=== PATIENT | female | born 1960 | race African-American/Black ===

== ENCOUNTER 2016-07-22 08:19 | Inpatient (IN) | payer MEDICARE, MEDICAID ==
[~2016-07-22] VITALS: Ht 170.2 cm; Wt 101.6 kg
[~2016-07-22 08:19] MED LIST: GEODON; OMEP20CA4 PO
[2016-07-22] MEDS ORDERED: MORPHINE SULFATE 4 MG/ML CPJ (NOT FOR IM USE) IV STA (09:45)
[2016-07-22] MEDS ORDERED: ONDANSETRON HCL 4MG/2ML VIAL IV STA (09:45)
[2016-07-22 11:10] LABS: BASOPHILS % 0.5 % (0.0-2.0); EOSINOPHILS % 0.7 % (0.0-5.0); HEMATOCRIT. 39.1 % (36.0-48.0); HEMOGLOBIN. 12.8 g/dL (12.0-16.0); MEAN CORPUSCULAR HEMOGLOBIN 29.4 pg (28.0-32.0); MEAN CORPUSCULAR HGB CONC 32.8 g/dL (31.0-37.0); MEAN CORPUSCULAR VOLUME 89.7 fL (81.0-99.0); MEAN PLATELET VOLUME 6.9 fl (7.4-10.4); MONOCYTES % 7.8 % (2.0-8.0); PLATELET 239 x1000/uL (130-400); RED BLOOD CELL COUNT 4.37 mill/uL (4.2-5.4); RED CELL DISTRIBUTION WIDTH 13.4 % (11.6-14.6); WHITE BLOOD COUNT 7.8 x1000/uL (4.5-11.0)
[2016-07-22 11:15] LABS: PARTIAL THROMBOPLASTIN TIME 26.2 sec (24.0-34.0); PROTHROMBIN TIME 10.7 sec
[2016-07-22 11:18] LABS: ALBUMIN 3.8 g/dL (3.4-5.0); ANION GAP 15; CALCIUM 8.9 mg/dL (8.5-10.1); CARBON DIOXIDE 29 mEq/L (21-32); CHLORIDE 101 mEq/L (98-107); INDEX HEMOLYSI 1 (1-3); INDEX ICTERIC 1 (1-4); INDEX LIPEMIC 1 (1-3); LIPASE 111 IU/L (73-393); UREA NITROGEN BLOOD 8 mg/dL (7-21)
[2016-07-22 11:23] LABS: TROPONIN I < 0.02 ng/mL (0.00-0.04); eGFR > 60 mL/min (>60)
[2016-07-22 11:29] LABS: ALANINE AMINOTRANSFERASE 26 IU/L (13-61)
[2016-07-22] MEDS ORDERED: GUAIFENESIN 200MG/10ML SUGAR FREE UDC PO PRN (12:30)
[2016-07-22] MEDS ORDERED: CLONIDINE 0.1MG TABLET PO PRN (12:30)
[2016-07-22] MEDS ORDERED: MAGNESIUM/ALUMINUM HYDROXIDE/SIMETHICONE 30ML UDC PO PRN (12:30)
[2016-07-22] MEDS ORDERED: LORAZEPAM 2MG/ML CPJ IV PRN (12:30)
[2016-07-22] MEDS ORDERED: ONDANSETRON HCL 4MG/2ML VIAL IV PRN (12:30)
[2016-07-22] MEDS ORDERED: IPRATROPIUM/ALBUTEROL 0.5-3(2.5)MG/3ML NEB INH PRN (12:30)
[2016-07-22] MEDS ORDERED: DOCUSATE SODIUM 100MG CAPSULE PO PRN (12:30)
[2016-07-22] MEDS ORDERED: ACETAMINOPHEN 325MG TABLET PO PRN (12:30)
[2016-07-22] MEDS ORDERED: NA PHOS,M-B/NA PHOS,DI-BA ENEMA 118ML PR PRN (12:30)
[2016-07-22 15:07] VITALS: BP 150/91
[2016-07-22] MEDS: HYDROCODONE/ACETAMINOPHEN 5/325MG TABLET PO PRN ×2 (15:28→19:48)
[2016-07-22 16:00] VITALS: BP 145/84
[2016-07-22 16:49] LABS: ANION GAP 11; CALCIUM 9.1 mg/dL (8.5-10.1); CARBON DIOXIDE 29 mEq/L (21-32); CHLORIDE 101 mEq/L (98-107); INDEX HEMOLYSI 1 (1-3); INDEX ICTERIC 1 (1-4); INDEX LIPEMIC 1 (1-3); UREA NITROGEN BLOOD 10 mg/dL (7-21); eGFR > 60 mL/min (>60)
[2016-07-22 16:52] LABS: TROPONIN I < 0.02 ng/mL (0.00-0.04)
[2016-07-22] MEDS: HYDROMORPHONE HCL/PF 2MG/ML CPJ IV PRN ×2 (17:33→22:29)
[2016-07-22] MEDS: ENOXAPARIN 30MG/0.3ML SYR SUBCUT SCH (17:34)
[2016-07-22] MEDS ORDERED: LISI-604 PO (19:08)
[2016-07-22] MEDS ORDERED: SITA1TAB4 PO (19:08)
[2016-07-22] MEDS ORDERED: AMLO10TA80 PO (19:08)
[2016-07-22] MEDS ORDERED: [UNRECOGNIZED DRUG - OTHER] PO (19:08)
[2016-07-22] MEDS ORDERED: OMEP40CA34 PO (19:08)
[2016-07-22] MEDS ORDERED: ACET-3161 PO (19:08)
[2016-07-22] MEDS ORDERED: ATOR20TA65 PO (19:08)
[2016-07-22] MEDS ORDERED: TRAZ-132 PO (19:08)
[2016-07-22] MEDS ORDERED: DEXTROSE 50% WATER 50ML SYRINGE IV PRN (19:30)
[2016-07-22 20:00] VITALS: BP 135/73
[2016-07-22] MEDS: BLOOD SUGAR DIAGNOSTIC STRIP TEST SCH (20:34)
[2016-07-22] MEDS: INSULIN LISPRO 100 UNITS/ML SUBCUT SCH (20:37)
[2016-07-23] VITALS: BP 145/92
[2016-07-23] MEDS: DIPHENHYDRAMINE 50MG/ML VIAL IV PRN (01:51)
[2016-07-23 04:00] VITALS: BP 151/83
[2016-07-23] MEDS: HYDROMORPHONE HCL/PF 2MG/ML CPJ IV PRN ×2 (05:57→09:22)
[2016-07-23] MEDS: ENOXAPARIN 30MG/0.3ML SYR SUBCUT SCH ×2 (05:57→17:48)
[2016-07-23 05:58] LABS: BASOPHILS % 0.4 % (0.0-2.0); EOSINOPHILS % 0.7 % (0.0-5.0); HEMATOCRIT. 38.2 % (36.0-48.0); HEMOGLOBIN. 12.4 g/dL (12.0-16.0); LYMPHOCYTES % 54.4 % (20.0-50.0); MEAN CORPUSCULAR HEMOGLOBIN 29.2 pg (28.0-32.0); MEAN CORPUSCULAR HGB CONC 32.4 g/dL (31.0-37.0); MEAN CORPUSCULAR VOLUME 90.2 fL (81.0-99.0); MEAN PLATELET VOLUME 6.9 fl (7.4-10.4); MONOCYTES % 9.2 % (2.0-8.0); NEUTROPHILS % 35.3 % (40.0-76.0); PLATELET 229 x1000/uL (130-400); RED BLOOD CELL COUNT 4.23 mill/uL (4.2-5.4); RED CELL DISTRIBUTION WIDTH 13.2 % (11.6-14.6); WHITE BLOOD COUNT 7.3 x1000/uL (4.5-11.0)
[2016-07-23] MEDS ORDERED: REPA0.5T3 PO (06:10)
[2016-07-23 06:26] LABS: ALANINE AMINOTRANSFERASE 23 IU/L (13-61); ALBUMIN 3.5 g/dL (3.4-5.0); ANION GAP 12; CALCIUM 8.9 mg/dL (8.5-10.1); CARBON DIOXIDE 30 mEq/L (21-32); CHLORIDE 102 mEq/L (98-107); INDEX HEMOLYSI 1 (1-3); INDEX ICTERIC 1 (1-4); INDEX LIPEMIC 1 (1-3); UREA NITROGEN BLOOD 7 mg/dL (7-21)
[2016-07-23 06:37] LABS: T4 FREE 1.04 ng/dL (0.76-1.46); eGFR > 60 mL/min (>60)
[2016-07-23] MEDS: BLOOD SUGAR DIAGNOSTIC STRIP TEST SCH ×4 (07:46→21:00)
[2016-07-23] MEDS: INSULIN LISPRO 100 UNITS/ML SUBCUT SCH ×4 (07:46→21:00)
[2016-07-23 08:00] VITALS: BP 151/93
[2016-07-23] MEDS ORDERED: SITAGLIPTIN PHOS PO SCH (09:00)
[2016-07-23] MEDS ORDERED: METFORMIN HCL PO SCH (09:00)
[2016-07-23] MEDS ORDERED: [UNRECOGNIZED DRUG - OTHER] PO SCH (09:00)
[2016-07-23] MEDS: METFORMIN HCL 500MG TABLET PO SCH ×2 (09:15→17:45)
[2016-07-23] MEDS: OMEPRAZOLE 20MG CAPSULE EXTENDED RELEASE PO SCH (09:15)
[2016-07-23] MEDS: ASPIRIN 81MG EC TABLET PO SCH (09:15)
[2016-07-23] MEDS: AMLODIPINE 10MG TABLET PO SCH (09:16)
[2016-07-23] MEDS: LINAGLIPTIN 5MG TABLET PO SCH (09:21)
[2016-07-23] MEDS: LISINOPRIL 20MG TABLET PO SCH (09:21)
[2016-07-23 12:00] VITALS: BP 153/75
[2016-07-23] MEDS: HYDROCODONE/ACETAMINOPHEN 5/325MG TABLET PO PRN ×3 (14:15→21:44)
[2016-07-23 16:00] VITALS: BP 143/75
[2016-07-23] MEDS ORDERED: REPAGLINIDE 0.5MG TABLET PO SCH (17:40)
[2016-07-23 20:00] VITALS: BP 148/84
[2016-07-23] MEDS ORDERED: ATORVASTATIN CALCIUM 40MG TABLET PO SCH (21:00)
[2016-07-23] MEDS ORDERED: TRAZODONE HCL 100MG TABLET PO SCH (21:00)
[2016-07-24] VITALS: BP 137/67
[2016-07-24] MEDS: DIPHENHYDRAMINE 50MG/ML VIAL IV PRN (00:13)
[2016-07-24 04:00] VITALS: BP 135/77
[2016-07-24] MEDS: ENOXAPARIN 30MG/0.3ML SYR SUBCUT SCH (06:08)
[2016-07-24 08:00] VITALS: BP 121/75
[2016-07-24] MEDS: OMEPRAZOLE 20MG CAPSULE EXTENDED RELEASE PO SCH (08:16)
[2016-07-24] MEDS: AMLODIPINE 10MG TABLET PO SCH (08:17)
[2016-07-24] MEDS: ASPIRIN 81MG EC TABLET PO SCH (08:17)
[2016-07-24] MEDS: LINAGLIPTIN 5MG TABLET PO SCH (08:17)
[2016-07-24] MEDS: METFORMIN HCL 500MG TABLET PO SCH (08:17)
[2016-07-24] MEDS: HYDROCODONE/ACETAMINOPHEN 5/325MG TABLET PO PRN (08:17)
[2016-07-24] MEDS: LISINOPRIL 20MG TABLET PO SCH (08:18)
[2016-07-24] MEDS: INSULIN LISPRO 100 UNITS/ML SUBCUT SCH (08:19)
[2016-07-24] MEDS: BLOOD SUGAR DIAGNOSTIC STRIP TEST SCH (08:30)
[2016-07-24 10:45] VITALS: BP 121/75
== END 2016-07-24 11:24 | disposition home or self-care (01) | DRG 206 ==
LOC: ER 08:41 → 7WST 12:10
PROVIDERS: ADMIT Internal Medicine; ATTEND Internal Medicine
DX: M94.0 Chondrocostal junction syndrome [Tietze] (principal); E46 Unspecified protein-calorie malnutrition; E11.42 Type 2 diabetes mellitus with diabetic polyneuropathy; I11.9 Hypertensive heart disease without heart failure; E87.8 Other disorders of electrolyte and fluid balance, not elsewhere classified; E78.5 Hyperlipidemia, unspecified; F17.200 Nicotine dependence, unspecified, uncomplicated; I65.29 Occlusion and stenosis of unspecified carotid artery; K21.9 Gastro-esophageal reflux disease without esophagitis; K59.00 Constipation, unspecified; M47.9 Spondylosis, unspecified; Z68.35 Body mass index [BMI] 35.0-35.9, adult
CPT/HCPCS: 36415; 70450; 71010; 72125; 80048; 80053; 82962; 83690; 84439; 84443; 84484; 85025; 85610; 85730; 93005; 96374; 96375; 99285; J1170; J1200; J1650; J1815; J2270; J2405

== ENCOUNTER 2016-09-07 16:10 | Emergency (ER) | payer MEDICARE, MEDICAID ==
[~2016-09-07] VITALS: Ht 167.6 cm; Wt 100.0 kg
[~2016-09-07 16:10] MED LIST changes: +ACET-3161 PO; +AMLO10TA80 PO; +ATOR20TA65 PO; +LISI-604 PO; +REPA0.5T3 PO; +SITA1TAB4 PO; +TRAZ-132 PO
[2016-09-07] MEDS ORDERED: KETOROLAC 30MG/ML VIAL IV STA (17:45)
[2016-09-07] MEDS ORDERED: SODIUM CHLORIDE 0.9% 1,000 ML IV ONE (17:45)
[2016-09-07] MEDS ORDERED: ONDANSETRON HCL 4MG/2ML VIAL IV STA (17:45)
[2016-09-07 18:16] LABS: CHLORIDE 103 mEq/L (98-107)
[2016-09-07 18:19] LABS: CARBON DIOXIDE 27 mEq/L (21-32)
[2016-09-07 18:44] LABS: BASOPHILS % 0.4 % (0.0-2.0); EOSINOPHILS % 0.5 % (0.0-5.0); HEMOGLOBIN. 14.2 g/dL (12.0-16.0); LYMPHOCYTES % 49.1 % (20.0-50.0); MEAN CORPUSCULAR HEMOGLOBIN 29.6 pg (28.0-32.0); MEAN CORPUSCULAR VOLUME 89.7 fL (81.0-99.0); MEAN PLATELET VOLUME 6.8 fl (7.4-10.4); MONOCYTES % 7.5 % (2.0-8.0); NEUTROPHILS % 42.5 % (40.0-76.0); PLATELET 229 x1000/uL (130-400); RED BLOOD CELL COUNT 4.79 mill/uL (4.2-5.4); RED CELL DISTRIBUTION WIDTH 13.6 % (11.6-14.6)
[2016-09-07 19:07] LABS: CLARITY URINE CLEAR (CLEAR); COLOR URINE YELLOW (YELLOW); GLUCOSE URINE NEGATIVE (NEGATIVE); KETONES URINE NEGATIVE (NEGATIVE); LEUKOCYTE ESTERASE URINE NEGATIVE (NEGATIVE); NITRITE URINE NEGATIVE (NEGATIVE); OCCULT BLOOD URINE TRACE (NEGATIVE); PROTEIN URINE NEGATIVE (NEGATIVE); SPECIFIC GRAVITY URINE 1.009 (1.005-1.030); UROBILINOGEN URINE 0.2 E.U./dL (0.2-1.0)
[2016-09-07] MEDS ORDERED: HYDRALAZINE 20MG/ML VIAL IV ONE (20:45)
[2016-09-07] MEDS ORDERED: MORPHINE SULFATE 4 MG/ML CPJ (NOT FOR IM USE) IV ONE (20:45)
[2016-09-07 22:02] VITALS: BP 148/66
== END 2016-09-07 22:06 | disposition home or self-care (01) ==
LOC: ER 18:10
DX: M54.9 Dorsalgia, unspecified (principal); R10.12 Left upper quadrant pain; R11.2 Nausea with vomiting, unspecified; R35.0 Frequency of micturition; F17.200 Nicotine dependence, unspecified, uncomplicated; I10 Essential (primary) hypertension; E11.9 Type 2 diabetes mellitus without complications; Z90.49 Acquired absence of other specified parts of digestive tract; Z88.8 Allergy status to other drugs, medicaments and biological substances
CPT/HCPCS: 36415; 71010; 74176; 80053; 81001; 83690; 85025; 93005; 96361; 96374; 96375; 99285; J0360; J1885; J2270; J2405; J7030

== ENCOUNTER 2017-05-21 18:34 | Emergency (ER) | payer MEDICARE, MEDICAID ==
[~2017-05-21] VITALS: Ht 162.6 cm; Wt 70.0 kg
[2017-05-22] MEDS ORDERED: HYDROCODONE/APAP 7.5/325MG 1 TAB TABLET PO ONE (00:15)
[2017-05-22 01:43] VITALS: BP 143/81
== END 2017-05-22 01:47 | disposition home or self-care (01) ==
LOC: ER 18:54
DX: S20.20XA Contusion of thorax, unspecified, initial encounter (principal); E11.9 Type 2 diabetes mellitus without complications; I10 Essential (primary) hypertension; Z88.8 Allergy status to other drugs, medicaments and biological substances; Z90.49 Acquired absence of other specified parts of digestive tract; W01.0XXA Fall on same level from slipping, tripping and stumbling without subsequent striking against object, initial encounter; Y93.89 Activity, other specified; Y92.811 Bus as the place of occurrence of the external cause
CPT/HCPCS: 71101; 99284

== ENCOUNTER 2018-03-12 00:36 | Emergency (ER) | payer MEDICARE, MEDICAID ==
[~2018-03-12] VITALS: Ht 167.6 cm; Wt 95.0 kg
[~2018-03-12 00:36] MED LIST changes: -TRAZ-132 PO; +TRAZ-213 PO
[2018-03-12 01:27] LABS: BASOPHILS % 0.4 % (0.0-2.0); EOSINOPHILS % 0.8 % (0.0-5.0); HEMATOCRIT. 40.5 % (36.0-48.0); HEMOGLOBIN. 13.2 g/dL (12.0-16.0); LYMPHOCYTES % 28.3 % (20.0-50.0); MEAN CORPUSCULAR HEMOGLOBIN 29.9 pg (28.0-32.0); MEAN CORPUSCULAR VOLUME 91.5 fL (81.0-99.0); MONOCYTES % 6.8 % (2.0-8.0); NEUTROPHILS % 63.7 % (40.0-76.0); PLATELET 279 x1000/uL (130-400); RED BLOOD CELL COUNT 4.42 mill/uL (4.2-5.4); RED CELL DISTRIBUTION WIDTH 13.1 % (11.6-14.6)
[2018-03-12 01:33] LABS: CHLORIDE 96 mEq/L (98-107)
[2018-03-12 01:36] LABS: PROTHROMBIN TIME 10.5 sec (9.1-11.1)
[2018-03-12 02:50] LABS: CLARITY URINE CLEAR (CLEAR); COLOR URINE YELLOW (YELLOW); KETONES URINE NEGATIVE (NEGATIVE); LEUKOCYTE ESTERASE URINE NEGATIVE (NEGATIVE); NITRITE URINE NEGATIVE (NEGATIVE); OCCULT BLOOD URINE TRACE (NEGATIVE); PH URINE 6.5 (4.5-8.0); PROTEIN URINE NEGATIVE (NEGATIVE); SPECIFIC GRAVITY URINE 1.006 (1.005-1.030); UROBILINOGEN URINE 0.2 E.U./dL (0.2-1.0)
[2018-03-12 03:51] VITALS: BP 169/88
== END 2018-03-12 03:52 | disposition home or self-care (01) ==
LOC: ER 00:36
DX: R55 Syncope and collapse (principal); F41.9 Anxiety disorder, unspecified; E11.9 Type 2 diabetes mellitus without complications; E78.00 Pure hypercholesterolemia, unspecified; F17.200 Nicotine dependence, unspecified, uncomplicated; Z79.899 Other long term (current) drug therapy; Z88.9 Allergy status to unspecified drugs, medicaments and biological substances
CPT/HCPCS: 36415; 71045; 82962; 83605; 83880; 84484; 93005; 99284; 99406

== ENCOUNTER 2018-03-24 03:12 | Emergency (ER) | payer MEDICARE, MEDICAID ==
[~2018-03-24] VITALS: Ht 172.7 cm; Wt 95.4 kg
[2018-03-24] MEDS ORDERED: KETOROLAC 60MG/2ML VIAL IM STA (09:46)
[2018-03-24] MEDS ORDERED: CYCLOBENZAPRINE 10MG TABLET PO ONE (10:00)
[2018-03-24 13:15] VITALS: BP 130/66
== END 2018-03-24 13:23 | disposition home or self-care (01) ==
LOC: ER 03:12
DX: M26.609 Unspecified temporomandibular joint disorder, unspecified side (principal); J02.9 Acute pharyngitis, unspecified; Z88.8 Allergy status to other drugs, medicaments and biological substances; Z90.710 Acquired absence of both cervix and uterus
CPT/HCPCS: 87070; 87430; 96372; 99283; J1885

== ENCOUNTER 2018-11-22 08:18 | Emergency (ER) | payer BC, MEDICAID ==
[~2018-11-22] VITALS: Ht 165.1 cm; Wt 95.0 kg
[2018-11-22] MEDS ORDERED: SODIUM CHLORIDE 0.9% 1,000 ML IV ONE (09:54)
[2018-11-22 10:07] LABS: BASOPHILS % 0.3 % (0.0-2.0); EOSINOPHILS % 1.1 % (0.0-5.0); HEMATOCRIT. 36.9 % (36.0-48.0); HEMOGLOBIN. 12.3 g/dL (12.0-16.0); LYMPHOCYTES % 40.3 % (20.0-50.0); MEAN CORPUSCULAR HEMOGLOBIN 29.9 pg (28.0-32.0); MEAN CORPUSCULAR VOLUME 89.6 fL (81.0-99.0); MEAN PLATELET VOLUME 6.9 fl (7.4-10.4); NEUTROPHILS % 51.3 % (40.0-76.0); PLATELET 230 x1000/uL (130-400); RED BLOOD CELL COUNT 4.12 mill/uL (4.2-5.4); RED CELL DISTRIBUTION WIDTH 13.5 % (11.6-14.6)
[2018-11-22 10:18] LABS: CHLORIDE 104 mEq/L (98-107)
[2018-11-22 10:25] LABS: CLARITY URINE CLEAR (CLEAR); COLOR URINE YELLOW (YELLOW); KETONES URINE NEGATIVE (NEGATIVE); LEUKOCYTE ESTERASE URINE TRACE (NEGATIVE); NITRITE URINE NEGATIVE (NEGATIVE); OCCULT BLOOD URINE NEGATIVE (NEGATIVE); PH URINE 7.5 (4.5-8.0); PROTEIN URINE NEGATIVE (NEGATIVE); SPECIFIC GRAVITY URINE 1.008 (1.005-1.030); UROBILINOGEN URINE 0.2 E.U./dL (0.2-1.0)
[2018-11-22] MEDS ORDERED: MAGNESIUM 1 G PREMIX 100 ML IV ONE (11:30)
[2018-11-22 13:35] VITALS: BP 157/76
== END 2018-11-22 14:32 | disposition home or self-care (01) ==
LOC: ER 08:18
DX: R55 Syncope and collapse (principal); E86.0 Dehydration; E11.65 Type 2 diabetes mellitus with hyperglycemia; F41.9 Anxiety disorder, unspecified; E78.00 Pure hypercholesterolemia, unspecified; Z79.899 Other long term (current) drug therapy; Z88.1 Allergy status to other antibiotic agents
CPT/HCPCS: 36415; 71045; 80053; 81003; 83735; 83880; 84484; 85025; 93005; 96361; 96365; 96366; 99284; J3475; J7030

== ENCOUNTER 2019-01-13 17:49 | Emergency (ER) | payer MEDICARE, MEDICAID ==
[~2019-01-13] VITALS: Ht 167.6 cm; Wt 90.0 kg
[2019-01-13] MEDS ORDERED: METHYLPREDNISOLONE SOD SUCC 125 MG/2 ML VIAL IV STA (20:47)
[2019-01-13] MEDS ORDERED: ASPIRIN 81MG TABLET PO ONE (21:00)
[2019-01-13] MEDS ORDERED: IPRATROPIUM/ALBUTEROL 0.5-3(2.5)MG/3ML NEB HHN ONE (21:00)
[2019-01-13 21:19] LABS: BASOPHILS % 0.8 % (0.0-2.0); EOSINOPHILS % 0.8 % (0.0-5.0); HEMATOCRIT. 36.9 % (36.0-48.0); HEMOGLOBIN. 12.3 g/dL (12.0-16.0); LYMPHOCYTES % 50.5 % (20.0-50.0); MEAN CORPUSCULAR HEMOGLOBIN 30.1 pg (28.0-32.0); MEAN CORPUSCULAR VOLUME 90.3 fL (81.0-99.0); MEAN PLATELET VOLUME 6.9 fl (7.4-10.4); NEUTROPHILS % 39.9 % (40.0-76.0); PLATELET 213 x1000/uL (130-400); RED BLOOD CELL COUNT 4.09 mill/uL (4.2-5.4); RED CELL DISTRIBUTION WIDTH 13.7 % (11.6-14.6)
[2019-01-13 21:25] LABS: CHLORIDE 106 mEq/L (98-107)
[2019-01-13 21:30] LABS: ETHANOL BLOOD < 10 mg/dL
[2019-01-13 21:48] LABS: *AMPHETAMINES SCREEN URINE NEGATIVE (NEGATIVE)
[2019-01-13 21:49] LABS: *BARBITURATES SCREEN URINE NEGATIVE (NEGATIVE); *BENZODIAZEPINES SCREEN URINE NEGATIVE (NEGATIVE); *COCAINE SCREEN URINE NEGATIVE (NEGATIVE); METHADONE URINE SCREEN NEGATIVE (NEGATIVE); OPIATES URINE SCREEN NEGATIVE (NEGATIVE); PHENCYCLIDINE URINE SCREEN NEGATIVE (NEGATIVE)
[2019-01-13 21:50] LABS: CANNABINOID URINE SCREEN NEGATIVE (NEGATIVE)
[2019-01-14] MEDS ORDERED: CLONIDINE 0.2MG TABLET PO ONE (00:15)
[2019-01-14] MEDS ORDERED: MAGNESIUM/ALUMINUM HYDROXIDE/SIMETHICONE 30ML UDC PO ONE (03:15)
[2019-01-14] MEDS ORDERED: VISCOUS LIDOCAINE 2% 15 ML UDC PO ONE (03:15)
[2019-01-14 03:40] VITALS: BP 145/73
== END 2019-01-14 04:30 | disposition left against medical advice (07) ==
LOC: ER 18:57 → CANBEDREQ 01-14 04:42
DX: I10 Essential (primary) hypertension (principal); R06.02 Shortness of breath; R10.9 Unspecified abdominal pain; E11.9 Type 2 diabetes mellitus without complications; Z88.1 Allergy status to other antibiotic agents; Z88.9 Allergy status to unspecified drugs, medicaments and biological substances; Z79.899 Other long term (current) drug therapy
CPT/HCPCS: 36415; 71045; 74176; 80053; 80305; 80320; 82962; 83880; 84484; 85025; 87040; 87086; 93005; 94640; 96374; 99284; J2930; J7620; G0480

== ENCOUNTER 2019-03-14 06:50 | Emergency (ER) | payer BC, MEDICAID, MEDICARE ==
[~2019-03-14] VITALS: Ht 167.6 cm; Wt 91.0 kg
[~2019-03-14 06:50] MED LIST changes: -REPA0.5T3 PO; +REPA0.5T5 PO; -TRAZ-213 PO; +TRAZ-252 PO
[2019-03-14 08:30] VITALS: BP 158/86
== END 2019-03-14 08:26 | disposition home or self-care (01) ==
LOC: ER 06:50
DX: F41.9 Anxiety disorder, unspecified (principal); Z76.0 Encounter for issue of repeat prescription; E11.9 Type 2 diabetes mellitus without complications; I10 Essential (primary) hypertension; Z79.899 Other long term (current) drug therapy; Z88.8 Allergy status to other drugs, medicaments and biological substances
CPT/HCPCS: 99282; 99283

== ENCOUNTER 2019-07-26 13:42 | Emergency (ER) | payer OTHER, MEDICAID ==
[~2019-07-26] VITALS: Ht 167.6 cm; Wt 92.0 kg
[2019-07-26] MEDS ORDERED: SODIUM CHLORIDE 0.9% 1,000 ML IV ONE (14:14)
[2019-07-26] MEDS ORDERED: ONDANSETRON HCL 4MG/2ML INJ IV ONE (14:30)
[2019-07-26 14:46] LABS: BASOPHILS % 0.6 % (0.0-2.0); EOSINOPHILS % 0.7 % (0.0-5.0); HEMATOCRIT. 39.5 % (36.0-48.0); HEMOGLOBIN. 13.2 g/dL (12.0-16.0); LYMPHOCYTES % 37.5 % (20.0-50.0); MEAN CORPUSCULAR VOLUME 89.9 fL (81.0-99.0); MEAN PLATELET VOLUME 6.8 fl (7.4-10.4); MONOCYTES % 9.3 % (2.0-8.0); NEUTROPHILS % 51.9 % (40.0-76.0); PLATELET 222 x1000/uL (130-400); RED CELL DISTRIBUTION WIDTH 13.5 % (11.6-14.6)
[2019-07-26 14:49] LABS: CHLORIDE 101 mEq/L (98-107)
[2019-07-26 14:52] LABS: INR 0.9; PROTHROMBIN TIME 10.2 sec (9.6-11.0)
[2019-07-26 15:32] VITALS: BP 179/84
== END 2019-07-26 16:35 | disposition home or self-care (01) ==
LOC: ER 14:05
DX: E11.65 Type 2 diabetes mellitus with hyperglycemia (principal); I16.0 Hypertensive urgency; E78.00 Pure hypercholesterolemia, unspecified; Z90.710 Acquired absence of both cervix and uterus; Z90.49 Acquired absence of other specified parts of digestive tract
CPT/HCPCS: 36415; 71045; 80053; 82962; 85025; 85610; 93005; 96361; 96374; 99285; J2405; J7030

== ENCOUNTER 2024-09-12 20:51 | Emergency (ER) | payer BC, MEDICAID, MEDICARE, OTHER ==
[~2024-09-12] VITALS: Ht 167.6 cm; Wt 82.0 kg
[~2024-09-12 20:51] MED LIST changes: -LISI-604 PO; +LISI20TA31 PO; -REPA0.5T5 PO; +[UNRECOGNIZED DRUG - CODE] PO
[2024-09-12 20:57] VITALS: TEMP 36.9; O2SAT 99
[2024-09-12] MEDS: SODIUM CHLORIDE 0.9% 1,000 ML IV ONE (22:47)
[2024-09-12] MEDS: ONDANSETRON HCL 4MG/2ML INJ IV STA (22:47)
[2024-09-12] MEDS: ACETAMINOPHEN 1000MG/100ML 100 ML IV ONE (22:47)
[2024-09-12 23:19] LABS: BASOPHILS % 0.6 % (0.0-2.0); HEMATOCRIT. 38.9 % (36.0-48.0); HEMOGLOBIN. 12.6 g/dL (12.0-16.0); LYMPHOCYTES % 42.8 % (20.0-50.0); MEAN CORPUSCULAR HEMOGLOBIN 28.9 pg (28.0-32.0); MEAN CORPUSCULAR HGB CONC 32.5 g/dL (31.0-37.0); MEAN CORPUSCULAR VOLUME 89.1 fL (81.0-99.0); MEAN PLATELET VOLUME 6.4 fl (7.4-10.4); MONOCYTES % 6.9 % (2.0-8.0); NEUTROPHILS % 48.7 % (40.0-76.0); PLATELET 233 x1000/uL (130-400); RED BLOOD CELL COUNT 4.37 mill/uL (4.2-5.4); RED CELL DISTRIBUTION WIDTH 13.7 % (11.6-14.6); WHITE BLOOD COUNT 9.7 x1000/uL (4.5-11.0)
[2024-09-12 23:35] LABS: CHLORIDE 102 mEq/L (98-107); POTASSIUM 4.5 mEq/L (3.5-5.1); SODIUM 138 mEq/L (136-145)
[2024-09-12 23:36] LABS: CARBON DIOXIDE 25 mEq/L (21-32)
[2024-09-12 23:37] LABS: CALCIUM 9.8 mg/dL (8.7-10.4)
[2024-09-12 23:41] LABS: CREATININE 0.8 mg/dL (0.6-1.0); GLUCOSE 121 mg/dL (70-105); UREA NITROGEN BLOOD 8 mg/dL (9-23)
[2024-09-12 23:42] LABS: TROPONIN I HIGH SENSITIVITY < 4 ng/L (3.0-34)
[2024-09-13 00:45] VITALS: BP 154/72; PULSE 85; RESP 16; O2SAT 98
[2024-09-13 00:46] LABS: CLARITY URINE CLEAR (CLEAR); COLOR URINE YELLOW (YELLOW); GLUCOSE URINE NEGATIVE (NEGATIVE); KETONES URINE NEGATIVE (NEGATIVE); LEUKOCYTE ESTERASE URINE NEGATIVE (NEGATIVE); NITRITE URINE NEGATIVE (NEGATIVE); OCCULT BLOOD URINE NEGATIVE (NEGATIVE); PH URINE 5.5 (4.5-8.0); PROTEIN URINE NEGATIVE (NEGATIVE); SPECIFIC GRAVITY URINE 1.019 (1.005-1.030); UROBILINOGEN URINE 0.2 E.U./dL (0.2-1.0)
== END 2024-09-13 01:21 | disposition home or self-care (01) ==
LOC: ER 20:51
DX: R11.2 Nausea with vomiting, unspecified (principal); R19.7 Diarrhea, unspecified; I10 Essential (primary) hypertension; J45.909 Unspecified asthma, uncomplicated; E11.9 Type 2 diabetes mellitus without complications; E78.00 Pure hypercholesterolemia, unspecified; Z88.3 Allergy status to other anti-infective agents; Z79.899 Other long term (current) drug therapy; Z90.710 Acquired absence of both cervix and uterus; Z90.49 Acquired absence of other specified parts of digestive tract
CPT/HCPCS: 99285; 96365; 71045; 96375; 80048; 85025; 84484; 36415; 93005; 81003; J2405; J7030; J0131

== ENCOUNTER 2024-12-26 08:19 | Inpatient (IN) | payer MEDICARE, MEDICAID ==
[~2024-12-26] VITALS: Ht 167.6 cm; Wt 97.5 kg
[2024-12-26 08:20] VITALS: O2SAT 98
[2024-12-26] MEDS: HYDROCODONE/ACETAMINOPHEN 5/325MG TABLET PO ONE (09:18)
[2024-12-26 09:37] LABS: BASOPHILS % 0.8 % (0.0-2.0); EOSINOPHILS % 1.3 % (0.0-5.0); HEMATOCRIT. 38.1 % (36.0-48.0); HEMOGLOBIN. 12.4 g/dL (12.0-16.0); LYMPHOCYTES % 47.2 % (20.0-50.0); MEAN PLATELET VOLUME 5.8 fl (7.4-10.4); MONOCYTES % 7.6 % (2.0-8.0); NEUTROPHILS % 43.1 % (40.0-76.0); PLATELET 322 x1000/uL (130-400); RED BLOOD CELL COUNT 4.28 mill/uL (4.2-5.4); RED CELL DISTRIBUTION WIDTH 13.1 % (11.6-14.6)
[2024-12-26 09:55] LABS: CREATININE 0.8 mg/dL (0.6-1.0); UREA NITROGEN BLOOD 6 mg/dL (9-23)
[2024-12-26] MEDS: PIPERACILLIN/TAZO 3.375G/50ML 50 ML IV ONE (12:21)
[2024-12-26] MEDS: VANCOMYCIN 1G PREMIX 200 ML IV ONE (12:58)
[2024-12-26] MEDS: SODIUM CHLORIDE 0.9% 1,000 ML IV ONE (13:32)
[2024-12-26 16:34] VITALS: BP 171/82; PULSE 77; RESP 18; TEMP 36.4; O2SAT 99
[2024-12-26 17:00] VITALS: BP 171/82; PULSE 77; RESP 18; TEMP 36.4736
[2024-12-26] MEDS ORDERED: ACETAMINOPHEN 325MG TABLET PO PRN ×2 (17:15→18:15)
[2024-12-26] MEDS: HYDRALAZINE 20MG/ML VIAL IV PRN (17:49)
[2024-12-26] MEDS ORDERED: DIPHENHYDRAMINE 50MG/ML VIAL IV PRN (18:15)
[2024-12-26] MEDS ORDERED: ZOLPIDEM TARTRATE 5MG TABLET PO PRN (18:15)
[2024-12-26] MEDS ORDERED: DEXTROSE 50% WATER 50ML SYRINGE IV PRN (18:15)
[2024-12-26] MEDS ORDERED: VANCOMYCIN 1G PREMIX 200 ML IV SCH (18:15)
[2024-12-26] MEDS ORDERED: CLONIDINE 0.1MG TABLET PO PRN (18:15)
[2024-12-26] MEDS ORDERED: ONDANSETRON HCL 4MG/2ML INJ IV PRN (18:15)
[2024-12-26] MEDS ORDERED: IPRATROPIUM/ALBUTEROL 0.5-3(2.5)MG/3ML NEB HHN PRN (18:15)
[2024-12-26 20:00] VITALS: BP 147/86; PULSE 76; RESP 20; TEMP 36.3; O2SAT 98
[2024-12-26] MEDS: ACETAMINOPHEN 325MG TABLET PO PRN (21:23)
[2024-12-26] MEDS: OXYBUTYNIN CHLORIDE 5MG TABLET PO SCH (21:23)
[2024-12-26] MEDS: AMLODIPINE 5MG TABLET PO SCH (21:23)
[2024-12-26] MEDS: SODIUM CHLORIDE 0.9% 3ML FLUSH IVF SCH (21:24)
[2024-12-26] MEDS: LISINOPRIL 10MG TABLET PO SCH (21:24)
[2024-12-26] MEDS: BLOOD SUGAR DIAGNOSTIC STRIP TEST SCH (21:24)
[2024-12-26] MEDS: TRAZODONE HCL 50MG TABLET PO SCH (21:24)
[2024-12-26] MEDS: ENOXAPARIN 40MG/0.4ML SYR SUBCUT SCH (21:25)
[2024-12-26] MEDS: INSULIN LISPRO 100 UNITS/ML SUBCUT SCH (21:30)
[2024-12-26] MEDS: PIPERACILLIN/TAZO 3.375G/50ML 50 ML IV SCH (21:50)
[2024-12-26] MEDS: VANCOMYCIN 750MG/150ML (BAXTER) IV SCH (21:50)
[2024-12-27] VITALS: BP 142/70; PULSE 78; RESP 20; TEMP 36.1; O2SAT 99
[2024-12-27 04:00] VITALS: BP 137/72; PULSE 79; RESP 18; TEMP 36.6; O2SAT 97
[2024-12-27] MEDS: MAGNESIUM/ALUMINUM HYDROXIDE/SIMETHICONE 30ML UDC PO PRN (06:16)
[2024-12-27 08:00] VITALS: BP 147/78; PULSE 80; RESP 19; TEMP 36.6; O2SAT 19
[2024-12-27 12:00] VITALS: BP 153/68; PULSE 90; RESP 19; TEMP 36.7; O2SAT 100
[2024-12-27] MEDS: LORAZEPAM 0.5MG TABLET PO PRN (13:38)
[2024-12-27] MEDS: CYCLOBENZAPRINE 10MG TABLET PO PRN (13:38)
[2024-12-27 16:00] VITALS: BP 147/75; PULSE 80; RESP 18; TEMP 36.6; O2SAT 100
[2024-12-27 20:00] VITALS: BP 180/98; PULSE 100; RESP 16; TEMP 36.7; O2SAT 100
[2024-12-28] VITALS: BP 137/74; PULSE 98; RESP 16; TEMP 36.7; O2SAT 99
[2024-12-28 04:00] VITALS: BP 134/81; PULSE 83; RESP 16; TEMP 36.7; O2SAT 98
[2024-12-28 08:00] VITALS: BP 128/73; PULSE 84; RESP 18; TEMP 36.7; O2SAT 98
[2024-12-28 12:00] VITALS: BP 127/73; PULSE 90; RESP 18; TEMP 36.9; O2SAT 97
[2024-12-28 12:20] LABS: BASOPHILS % 0.5 % (0.0-2.0); EOSINOPHILS % 1.0 % (0.0-5.0); HEMATOCRIT. 36.6 % (36.0-48.0); HEMOGLOBIN. 12.0 g/dL (12.0-16.0); LYMPHOCYTES % 41.6 % (20.0-50.0); MEAN PLATELET VOLUME 6.1 fl (7.4-10.4); MONOCYTES % 8.9 % (2.0-8.0); NEUTROPHILS % 48.0 % (40.0-76.0); PLATELET 327 x1000/uL (130-400); RED BLOOD CELL COUNT 4.12 mill/uL (4.2-5.4); RED CELL DISTRIBUTION WIDTH 13.3 % (11.6-14.6)
[2024-12-28 12:31] LABS: CREATININE 0.8 mg/dL (0.6-1.0); UREA NITROGEN BLOOD 8 mg/dL (9-23)
[2024-12-28 16:00] VITALS: BP 148/82; PULSE 79; RESP 20; TEMP 36.3; O2SAT 99
[2024-12-28 19:05] VITALS: BP 121/79; PULSE 75; TEMP 98.2
[2024-12-28] MEDS ORDERED: AMOXICILLIN/POTASSIUM CLAVULANATE 500/125MG TAB PO SCH (22:00)
== END 2024-12-28 20:40 | disposition home or self-care (01) | DRG 153 ==
LOC: ER 08:19 → 8WST 15:30
PROVIDERS: ADMIT Internal Medicine; ATTEND Internal Medicine
DX: J01.00 Acute maxillary sinusitis, unspecified (principal); M86.8X8 Other osteomyelitis, other site; I10 Essential (primary) hypertension; E11.69 Type 2 diabetes mellitus with other specified complication; E78.00 Pure hypercholesterolemia, unspecified; Z90.710 Acquired absence of both cervix and uterus
CPT/HCPCS: 36415; 70486; 80048; 80202; 82962; 83036; 83605; 85025; 96361; 96365; 96367; 96372; 96375; 99291; A4606; J0360; J1650; J1815; J2543; J3373; J7030